=== PATIENT | male | born 1960 | race Caucasian/White ===

== ENCOUNTER 2018-05-19 16:38 | Inpatient (IN) | payer MEDICARE ==
[~2018-05-19] VITALS: Ht 180.3 cm; Wt 91.3 kg
[2018-05-19 17:14] LABS: Source, Urine Voided
[2018-05-19] MEDS ORDERED: TRAZ50 PO (17:14)
[2018-05-19] MEDS ORDERED: Celexa10 MG PO (17:14)
[2018-05-19] MEDS ORDERED: GINSENG EXTRACT50 MG PO (17:15)
[2018-05-19 17:20] LABS: Appearance, Urine Clear (Clear); BASOPHILS ABSOLUTE AUTO 0.02 K/mm3 (0.00-0.23); BASOPHILS PERCENT AUTO 0 % (0-2); Bilirubin, Urine Neg (Neg); Blood, Urine 1+ (Neg); Color, Urine Yellow (P-Yellow); EOSINOPHILS ABSOLUTE AUTO 0.05 K/mm3 (0.00-0.68); EOSINOPHILS PERCENT AUTO 0 % (0-6); Glucose Qualitative, Urine Neg (Neg); Hematocrit 45.5 % (37.0-53.0); Hemoglobin 15.8 g/dL (13.5-17.5); IMMATURE GRAN ABSOLUTE AUTO 0.06 K/mm3 (0.00-0.10); IMMATURE GRAN PERCENT AUTO 0 % (0-1); Ketones, Urine Neg (Neg); LYMPHOCYTES ABSOLUTE AUTO 1.55 K/mm3 (0.84-5.20); LYMPHOCYTES PERCENT AUTO 11 % (21-46); Leukocyte Esterase, Urine Neg (Neg); MONOCYTES ABSOLUTE AUTO 0.96 K/mm3 (0.16-1.47); MONOCYTES PERCENT AUTO 7 % (4-13); Mean Corpuscular HGB 33.3 pg (26.0-34.0); Mean Corpuscular HGB Conc 34.7 g/dL (31.5-36.5); Mean Corpuscular Volume 96 fL (80-100); Mean Platelet Volume 8.8 fL (9.1-12.4); NEUTROPHILS ABSOLUTE AUTO 11.37 K/mm3 (1.96-9.15); NEUTROPHILS PERCENT AUTO 81 % (41-73); Nitrite, Urine Neg (Neg); Platelet Count 184 K/mm3 (150-400); Protein, Urine Neg (Neg); RDW Standard Deviation 43.1 fL (35.1-46.3); Red Blood Cell Count 4.74 M/mm3 (4.30-5.90); Specific Gravity, Urine 1.015 (1.003-1.022); Urobilinogen, Urine NORM (Normal); White Blood Cell Count 14.01 K/mm3 (4.00-11.30)
[2018-05-19 17:37] LABS: Bacteria Rare /hpf; Red Blood Cells, Urine 0-2 /hpf (0-2); Squamous Epithelial Cells Rare /hpf (Few); White Blood Cells, Urine 0-2 /hpf (0-5)
[2018-05-19 17:39] LABS: Alanine Aminotransfer (ALT/SGP 27 U/L (12-78); Albumin/Globulin Ratio 1.1 (0.8-1.8); Alk Phos 78 U/L (50-136); Anion Gap 9 mmol/L (6-16); Aspartate Aminotrans (AST/SGOT 26 U/L (12-37); Bilirubin, Total 0.8 mg/dL (0.1-1.0); Blood Urea Nitrogen 12 mg/dL (8-24); Bun/Creatinine Ratio 16.9 (12.0-20.0); CO2, Blood 23 mmol/L (21-32); Calcium, Blood 8.8 mg/dL (8.5-10.1); Chloride, Blood 105 mmol/L (98-108); Creatinine, Blood 0.71 mg/dL (0.60-1.20); Globulin, Blood 3.5 g/dL (2.2-4.0); Glomerular Filtration Rate >60 (60-); Glucose, Blood 117 mg/dL (70-99); Potassium, Blood 4.1 mmol/L (3.5-5.5); Sodium, Blood 137 mmol/L (136-145); Total Protein, Blood 7.5 g/dL (6.4-8.2)
[2018-05-21 04:22] LABS: BASOPHILS ABSOLUTE AUTO 0.01 K/mm3 (0.00-0.23); BASOPHILS PERCENT AUTO 0 % (0-2); EOSINOPHILS ABSOLUTE AUTO 0.01 K/mm3 (0.00-0.68); EOSINOPHILS PERCENT AUTO 0 % (0-6); Hematocrit 36.9 % (37.0-53.0); Hemoglobin 12.4 g/dL (13.5-17.5); IMMATURE GRAN ABSOLUTE AUTO 0.01 K/mm3 (0.00-0.10); IMMATURE GRAN PERCENT AUTO 0 % (0-1); LYMPHOCYTES ABSOLUTE AUTO 1.75 K/mm3 (0.84-5.20); LYMPHOCYTES PERCENT AUTO 22 % (21-46); MONOCYTES ABSOLUTE AUTO 0.55 K/mm3 (0.16-1.47); MONOCYTES PERCENT AUTO 7 % (4-13); Mean Corpuscular HGB 33.2 pg (26.0-34.0); Mean Corpuscular HGB Conc 33.6 g/dL (31.5-36.5); NEUTROPHILS ABSOLUTE AUTO 5.48 K/mm3 (1.96-9.15); NEUTROPHILS PERCENT AUTO 70 % (41-73); Platelet Count 130 K/mm3 (150-400); RDW Coefficient Variation 12.1 % (11.7-14.2); Red Blood Cell Count 3.73 M/mm3 (4.30-5.90); White Blood Cell Count 7.81 K/mm3 (4.00-11.30)
[2018-05-21 04:24] LABS: Mean Corpuscular Volume 99 fL (80-100)
[2018-05-21 04:35] LABS: Anion Gap 5 mmol/L (6-16); Blood Urea Nitrogen 14 mg/dL (8-24); Bun/Creatinine Ratio 17.9 (12.0-20.0); CO2, Blood 26 mmol/L (21-32); Calcium, Blood 7.9 mg/dL (8.5-10.1); Chloride, Blood 111 mmol/L (98-108); Creatinine, Blood 0.78 mg/dL (0.60-1.20); Glomerular Filtration Rate >60 (60-); Glucose, Blood 107 mg/dL (70-99); Potassium, Blood 4.3 mmol/L (3.5-5.5); Sodium, Blood 142 mmol/L (136-145)
[2018-05-21] MEDS ORDERED: Augmentin 875-1 EACH PO (14:23)
[2018-05-21] MEDS ORDERED: HYDR1TAB94 PO (14:24)
== END 2018-05-21 14:34 | disposition home or self-care (01) | DRG 340 ==
LOC: ER 16:38 → SURS 19:35
PROVIDERS: Emergency Medicine; Surgery
PROC: 0DTJ4ZZ Resection of Appendix, Percutaneous Endoscopic Approach (ICD-10-PCS; principal; 2018-05-20 13:30)
DX: K35.3 Acute appendicitis with localized peritonitis (principal); F17.200 Nicotine dependence, unspecified, uncomplicated; Z88.5 Allergy status to narcotic agent; Z79.899 Other long term (current) drug therapy
CPT/HCPCS: 36415; 74177; 80048; 80053; 81001; 83690; 85025; 88304; 94760; 96361; 96365; 96375; 99285-25; 99407; J0295; J1100; J1885; J2250; J2405; J2710; J3010; J7030; J7120; Q9967